=== PATIENT | female | born 1980 | race Caucasian/White ===

== ENCOUNTER 2016-06-03 13:21 | Emergency (ER) | payer BC ==
[2016-06-03] MEDS ORDERED: DEXAMETHASONE 10 MG/ML VIAL PO STA (14:22)
[2016-06-03] MEDS ORDERED: DEXAMETHASONE 10 MG/ML VIAL ONE (14:24)
[2016-06-03] MEDS ORDERED: CHERRY SYRUP 10 ML UDC PO ONE (14:24)
== END 2016-06-03 14:48 | disposition home or self-care (01) ==
DX: J06.9 Acute upper respiratory infection, unspecified (principal); B97.89 Other viral agents as the cause of diseases classified elsewhere; Z85.42 Personal history of malignant neoplasm of other parts of uterus
CPT/HCPCS: 99283; A9270

== ENCOUNTER 2018-03-14 13:54 | Emergency (ER) | payer BC ==
[2018-03-14] MEDS ORDERED: HYDROcod/ACETAM 5/325 MG TABLET PO STA (15:33)
--- NOTE | 2018-03-14 15:35 | ED Physician Documentation ---
PD HPI UPPER EXT INJURY - Stated complaint Stated Complaint: HAND INJURY - Chief complaint Chief Complaint: Ext Problem - History obtained from History obtained from: Patient, Friend - History of Present Illness Location: Left (About midnight last night she was walking in [place] and tripped and fell injuring her wrist hand and elbow, also her left knee but that does not hurt at all now. Pain is unrelieved by Motrin. 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 - Past Surgical History Past Surgical History: Yes General: Colonoscopy /PRODUCER: section, Dilation and currettage, Tubal ligation, Hysterectomy - Present Medications Home Medications: Ambulatory Orders Medication Instructions Recorded Confirmed Hydrocodone/Acetaminophen 1 - 2 each PO Q6H PRN #10 tablet 03/14/18 [Hydrocodon-Acetaminophen 5-325] - Allergies Allergies/Adverse Reactions: Allergies Allergy/AdvReac Type Severity Reaction Status Date / Time aspirin Allergy Respiratory Verified 03/14/18 14:14 erythromycin base Allergy Hives Verified 03/14/18 14:14 [Erythromycin Base] latex Allergy Hives Verified 03/14/18 14:14 morphine Allergy Unknown Verified 03/14/18 14:14 Penicillins Allergy Hives Verified 03/14/18 14:14 Yeast Allergy Rash Verified 03/14/18 14:14 - Social History Does the pt smoke?: No Smoking Status: Never smoker Does the pt drink ETOH?: Yes Does the pt have substance abuse?: No - Immunizations Immunizations are current?: Yes - POLST Patient has POLST: No PD ED PE NORMAL - Vitals Vital signs reviewed: Yes - General General: Alert and oriented X 3, No acute distress - Neck Neck: Supple, no meningeal sign, No bony TTP - Extremities Extremities: Other (Left knee is nontender with anterolateral small ecchymosis, no tenderness or limited range motion. She has mild tenderness over the medial epicondyle of the left elbow but full range of motion, a little abrasion over the olecranon, nothing deep. The dorsum of the left wrist is swollen and tender with absent range of motion due to pain, she is a well-healed surgical incision that is linear over the fourth metacarpal dorsally. Normal neurovascular function in all the fingers.) - Neuro Neuro: Alert and oriented X 3, Normal speech Results - Vitals Vitals: Vital Signs - 24 hr 03/14/18 14:11 Temperature 36.9 C Heart Rate 107 H Respiratory 18 Rate Blood Pressure 130/102 H O2 Saturation 100 Oxygen O2 Source Room air - Rads (name of study) L elbow/wrist/hand XRs Radiology: EMP read contemporaneously (Negative for fracture, note the radiologist reads the fourth metacarpal as being an expansile bone lesion but this is the cadaveric bone from her prior surgery.) Departure - Departure Disposition: 01 Home, Self Care Clinical Impression: Sprain of wrist, left Qualifiers: Encounter type: initial encounter Qualified Code(s): S63.502A - Unspecified sprain of left wrist, initial encounter Contusion of elbow, left Qualifiers: Encounter type: initial encounter Qualified Code(s): S50.02XA - Contusion of left elbow, initial encounter Condition: Good Record reviewed to determine appropriate education?: Yes Instructions: ED Splint Care Velcro, ED Sprain Wrist Prescriptions: Hydrocodone/Acetaminophen [Hydrocodon-Acetaminophen 5-325] 1 - 2 each PO Q6H PRN #10 tablet PRN Reason: pain Comments: Recheck with your doctor in a week if not better, return if worse or if new symptoms develop. Your blood pressure was elevated today on check into the emergency department. This does not mean that you have hypertension, it is a common phenomenon to come to the emergency department and have elevated blood pressure. I recommend that you see your primary care physician within the week to have it rechecked when you are feeling better. Do not drink or drive while taking narcotic pain medication. Note that many narcotic pain relievers also contain Tylenol/acetaminophen. Please ensure that your total dose of acetaminophen from all sources does not exceed 3 g (3000 mg) per day. You may get constipated while on this medication. Take a stool softener such as Colace twice a day while you are on it. Also add an [id number] laxative such as senna or MiraLAX on any day that you do not have a bowel movement. If you received a narcotic pain medication or sedative while in the emergency department, do not drive for the next 24 hours.
--- NOTE | 2018-03-14 16:04 | XRAY Report ---
Reason: elbow inj Procedure Date: 03/14/2018 Accession Number: [id number] / [id number] Procedure: XR - Elbow 3 View LT CPT Code: FULL RESULT: EXAM: LEFT ELBOW RADIOGRAPHY EXAM DATE: 03/14/2018 03:54 PM. CLINICAL HISTORY: Left elbow pain since fall yesterday. COMPARISON: None. TECHNIQUE: 3 views. FINDINGS: Bones: Normal. No fractures or bone lesions. Joints: Normal. No effusion. No subluxation. Soft Tissues: Unremarkable. IMPRESSION: Normal elbow radiography. RADIA
--- NOTE | 2018-03-14 16:08 | XRAY Report ---
Reason: Trauma Procedure Date: 03/14/2018 Accession Number: [id number] / [id number] Procedure: XR - Wrist 4 View LT CPT Code: FULL RESULT: EXAM: LEFT WRIST RADIOGRAPHY EXAM DATE: 03/14/2018 03:54 PM. CLINICAL HISTORY: Pain since fall yesterday. COMPARISON: None. TECHNIQUE: 4 views. FINDINGS: Bones: No acute traumatic or destructive bone abnormality. Expansile sclerotic bone lesion with endosteal scalloping in the shaft of the fourth metacarpal. Joints: Normal. No subluxations. Soft Tissues: Normal. No soft tissue swelling. IMPRESSION: 1. No acute bony abnormality. 2. 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 Consider bone scan to see if this is metabolically active. RADIA
--- NOTE | 2018-03-14 16:11 | XRAY Report ---
Reason: Trauma Procedure Date: 03/14/2018 Accession Number: [id number] / [id number] Procedure: XR - Hand 3 View LT CPT Code: FULL RESULT: EXAM: LEFT HAND RADIOGRAPHY EXAM DATE: 03/14/2018 03:54 PM. CLINICAL HISTORY: Pain and numbness in fingers since fall yesterday. History of cadaver bone graft in fourth metacarpal. COMPARISON: None. TECHNIQUE: 3 views. FINDINGS: Bones: No acute traumatic or destructive bone abnormalities. Sclerotic expansile bone lesion in the fourth metacarpal shaft with endosteal scalloping. Joints: Normal. No subluxations. Soft Tissues: Unremarkable. IMPRESSION: 1. No acute bony abnormalities. 2. Sclerotic expansile bone lesion in the fourth metacarpal shaft. RADIA
[2018-03-14 16:27] VITALS: BP 138/104
== END 2018-03-14 16:28 | disposition home or self-care (01) ==
LOC: ED 13:54
DX: S63.502A Unspecified sprain of left wrist, initial encounter (principal); S50.02XA Contusion of left elbow, initial encounter; S50.312A Abrasion of left elbow, initial encounter; W01.0XXA Fall on same level from slipping, tripping and stumbling without subsequent striking against object, initial encounter; Y93.01 Activity, walking, marching and hiking; R03.0 Elevated blood-pressure reading, without diagnosis of hypertension
CPT/HCPCS: 73080; 73110; 73130; 99283; A9270

== ENCOUNTER 2018-08-28 09:51 | Emergency (ER) | payer BC ==
[2018-08-28 10:26] LABS: BILIRUBIN,URINE NEGATIVE (NEGATIVE); KETONES,URINE (UA) TRACE mg/dL (NEGATIVE); OCCULT BLOOD,URINE NEGATIVE (NEGATIVE)
[2018-08-28 10:29] LABS: CLARITY,URINE CLEAR (CLEAR)
--- NOTE | 2018-08-28 10:30 | ED Physician Documentation ---
PD HPI FEMALE - Stated complaint Stated Complaint: FEMALE - Chief complaint Chief Complaint: General - History obtained from History obtained from: Patient - History of Present Illness Timing - onset: How many days ago (2-3) Timing - duration: Days (She has had 2-3 days of frequency and discomfort with urination. She thought she may have a bladder infection. She today now has right flank pain and felt feverish. She is concerned about kidney infection.) Timing - details: Gradual onset, Still present (worse today) Associated symptoms: Fever (mild subjective last night), Abdominal pain (some to right lower abd), Back pain (right flank), Dysuria, Urinary frequency. No: Chest/shoulder pain, Vaginal discharge, Genital sore/lesion Similar symptoms before: Diagnosis (prior UTIs but not with flank pain in the past. Has had kidney stone in the past, passed without intervention.) Review of Systems Constitutional: reports: Fever (last night), Myalgias Nose: denies: Rhinorrhea / runny nose, Congestion Throat: denies: Sore throat Respiratory: denies: Dyspnea, Cough GI: reports: Abdominal Pain, Nausea. denies: Vomiting, Diarrhea : reports: Dysuria, Frequency. denies: Discharge Skin: denies: Rash, Lesions Musculoskeletal: reports: Back pain (right flank since last night). 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 Other Past Medical History: Sinus Tachycardia - Past Surgical History Past Surgical History: Yes General: Colonoscopy /TE[employer] T[employer] F[employer] WORKER: section, Dilation and currettage, Tubal ligation, Hysterectomy - Present Medications Home Medications: Ambulatory Orders Medication Instructions Recorded Confirmed Cyclobenzaprine [Flexeril] 10 mg PO DAILY PM 08/28/18 08/28/18 Garlic 1,000 mg PO 08/28/18 Lisinopril 5 mg PO BID 08/28/18 08/28/18 Metoprolol Tartrate 50 mg PO BID 08/28/18 08/28/18 Multivitamin [Multiple Vitamins] 08/28/18 Ondansetron Odt [Zofran] 4 mg TL Q6H PRN #10 tablet 08/28/18 Potassium Chloride 99 meq PO 08/28/18 Sulfamethox/Trimeth 800/160 1 each PO BID #14 tablet 08/28/18 [Bactrim Ds 800/160] Tramadol HCl 50 mg PO Q6H PRN #15 tablet 08/28/18 - Allergies Allergies/Adverse Reactions: Allergies Allergy/AdvReac Type Severity Reaction Status Date / Time aspirin Allergy Respiratory Verified 08/28/18 10:05 erythromycin base Allergy Hives Verified 08/28/18 10:05 [Erythromycin Base] latex Allergy Hives Verified 08/28/18 10:05 morphine Allergy Unknown Verified 08/28/18 10:05 Penicillins Allergy Hives Verified 08/28/18 10:05 Yeast Allergy Rash Verified 08/28/18 10:05 - Social History Does the pt smoke?: No Smoking Status: Never smoker Does the pt drink ETOH?: Yes Does the pt have substance abuse?: No - Immunizations Immunizations are current?: Yes - POLST Patient has POLST: No PD ED PE NORMAL - Vitals Vital signs reviewed: Yes - General General: Alert and oriented X 3, Well developed/nourished - HEENT HEENT: Moist mucous membranes, Pharynx benign - Neck Neck: Supple, no meningeal sign, No adenopathy - Cardiac Cardiac: RRR, No murmur - Respiratory Respiratory: Clear bilaterally - Abdomen Abdomen: Soft, Non distended, No organomegaly - Female Female : Deferred - Rectal Rectal: Deferred - Back Back: Other (some right CVA tenderness; tender right lower abd without guarding nor percussion tenderness. ) - Derm Derm: Normal color, Warm and dry, No rash - Extremities Extremities: No deformity, Normal ROM s pain, No edema, No calf tenderness / cord - Neuro Neuro: Alert and oriented X 3, No motor deficit, Normal speech Results - Vitals Vitals: Vital Signs - 24 hr 08/28/18 08/28/18 10:03 13:48 Temperature 36.5 C Heart Rate 101 H 70 Respiratory 16 16 Rate Blood Pressure 125/85 H 120/87 H O2 Saturation 97 100 Oxygen O2 Source Room air - Labs Labs: Laboratory Tests 08/28/18 08/28/18 08/28/18 10:15 11:27 11:27 WBC 8.9 RBC 3.94 L Hgb 12.2 Hct 36.3 L MCV 92.1 MCH 30.9 MCHC 33.6 RDW 13.8 Plt Count 203 MPV 8.3 Neut # (Auto) 5.6 Lymph # (Auto) 2.5 [place] # (Auto) 0.6 Eos # (Auto) 0.1 Baso # (Auto) 0.1 Absolute Nucleated RBC 0.00 Nucleated RBC % 0.0 Sodium 136 Potassium 3.3 L Chloride 100 L Carbon Dioxide 27 Anion Gap 9.0 BUN 7 Creatinine 0.7 Estimated GFR (MDRD) 93 Glucose 100 Calcium 9.4 Magnesium 1.9 Total Bilirubin 0.7 AST 33 ALT 49 Alkaline Phosphatase 43 B-Natriuretic Peptide Total Protein 6.9 Albumin 3.8 Globulin 3.1 Albumin/Globulin Ratio 1.2 Lipase 36 Urine Color DK. ORANGE Urine Clarity CLEAR Urine pH 5.0 Ur Specific [place] <=1.005 Urine Protein Urine Glucose (UA) Urine Ketones TRACE Urine Occult Blood NEGATIVE Urine Nitrite Urine Bilirubin NEGATIVE Urine Urobilinogen Ur Leukocyte Esterase Urine RBC 0-5 Urine WBC 0-3 Ur Squamous Epith Cells FEW Squamous Urine Bacteria Few Ur Microscopic Review INDICATED Urine Culture Comments NOT INDICATED 08/28/18 11:27 WBC RBC Hgb Hct MCV MCH MCHC RDW Plt Count MPV Neut # (Auto) Lymph # (Auto) [place] # (Auto) Eos # (Auto) Baso # (Auto) Absolute Nucleated RBC Nucleated RBC % Sodium Potassium Chloride Carbon Dioxide Anion Gap BUN Creatinine Estimated GFR (MDRD) Glucose Calcium Magnesium Total Bilirubin AST ALT Alkaline Phosphatase B-Natriuretic Peptide 12 Total Protein Albumin Globulin Albumin/Globulin Ratio Lipase Urine Color Urine Clarity Urine pH Ur Specific [place] Urine Protein Urine Glucose (UA) Urine Ketones Urine Occult Blood Urine Nitrite Urine Bilirubin Urine Urobilinogen Ur Leukocyte Esterase Urine RBC Urine WBC Ur Squamous Epith Cells Urine Bacteria Ur Microscopic Review Urine Culture Comments - Rads (name of study) abd/pelvic CT Radiology: Prelim report reviewed (Appendix is visualized and normal. No signs of kidney stones nor hydronephrosis. There is an incidental cyst in the upper pole of the kidney. No process to explain the current pain.), See rad report PD MEDICAL DECISION MAKING - ED course Complexity details: reviewed results (CT scan did not show an acute obvious cause. We will follow back on diagnosis of urinary tract infection. She is to watch for other symptoms to develop such as increasing pain, fevers, rash or other concerns.), re-evaluated patient, considered differential (She was having some dysuria symptoms suggestive of UTI and now with some right flank pain. There is no rash noted. Her urine test shows some signs of infection but not very convincingly to the degree of kidney infection. There is some tenderness to the right lower abdomen and therefore would be concerned about kidney stone, abscess, appendicitis. We will get labs and CT scan to evaluate for other causes.), d/w patient Departure - Departure Disposition: 01 Home, Self Care Clinical Impression: Right sided abdominal pain UTI (urinary tract infection) Qualifiers: Urinary tract infection type: acute cystitis Hematuria presence: without hematuria Qualified Code(s): N30.00 - Acute cystitis without hematuria Condition: Stable Record reviewed to determine appropriate education?: Yes Instructions: ED Abdominal Pain Unkn Cause, ED UTI Cystitis Female Prescriptions: Ondansetron Odt [Zofran] 4 mg TL Q6H PRN #10 tablet PRN Reason: Nausea / Vomiting Sulfamethox/Trimeth 800/160 [Bactrim Ds 800/160] 1 each PO BID #14 tablet Tramadol HCl 50 mg PO Q6H PRN #15 tablet PRN Reason: Pain Comments: Stay well-hydrated. Your urine does show signs of infection we will treated with Bactrim twice daily for a week. This may be given you the pain to the right side as well as the nausea and vomiting. Hopefully those will improve and we can treat it with ondansetron for nausea and Tylenol or ibuprofen for pains. Add tramadol if needed for pain. Recheck if not improving over the next couple of days. Your blood tests and CT scan did not show an alternate cause of the pain. Discharge Date/Time: 08/28/18 13:54
[2018-08-28 10:37] LABS: BACTERIA,URINE Few /HPF (None Seen); RBC,URINE 0-5 /HPF (0-5); SQUAMOUS EPITHELIAL CELL,UR FEW Squamous (<= Few)
[2018-08-28] MEDS ORDERED: ONDANSETRON 4 MG/2 ML VIAL IVP STA (11:13)
[2018-08-28] MEDS ORDERED: SODIUM CHLORIDE 0.9% 1,000 ML IV ONE (11:13)
[2018-08-28 11:37] LABS: BASOPHILS # (AUTO) 0.1 10^3/uL (0.0-0.1); BASOPHILS % (AUTO) 1.3 %; EOSINOPHILS # (AUTO) 0.1 10^3/uL (0.0-0.7); HGB - HEMOGLOBIN 12.2 g/dL (12.0-16.0); LYMPHOCYTES # (AUTO) 2.5 10^3/uL (1.5-3.5); LYMPHOCYTES % (AUTO) 28.2 %; MEAN CORPUSCULAR HEMOGLOBIN 30.9 pg (27.0-31.0); MEAN CORPUSCULAR HGB CONC 33.6 g/dL (32.0-36.0); MEAN CORPUSCULAR VOLUME 92.1 fL (81.0-99.0); MEAN PLATELET VOLUME 8.3 fL (7.9-10.8); MONOCYTES # (AUTO) 0.6 10^3/uL (0.0-1.0); MONOCYTES % (AUTO) 6.8 %; NEUTROPHILS # (AUTO) 5.6 10^3/uL (1.5-6.6); NEUTROPHILS % (AUTO) 62.7 %; PLT - PLATELET COUNT 203 10^3/uL (130-450); RED BLOOD COUNT 3.94 10^6/uL (4.20-5.40); RED CELL DISTRIBUTION WIDTH 13.8 % (12.0-15.0); WHITE BLOOD COUNT 8.9 x10^3/uL (4.8-10.8)
[2018-08-28 11:49] LABS: ALBUMIN 3.8 g/dL (3.2-5.5); ALBUMIN/GLOBULIN RATIO 1.2 (1.0-2.2); BILIRUBIN,TOTAL 0.7 mg/dL (0.2-1.0); CALCIUM 9.4 mg/dL (8.5-10.3); CREATININE 0.7 mg/dL (0.4-1.0); MAGNESIUM 1.9 mg/dL (1.7-2.8); TOTAL PROTEIN 6.9 g/dL (6.7-8.2)
[2018-08-28] MEDS ORDERED: IOVERSOL 320 100 ML VIAL IVP ONE ×2 (12:02→12:19)
--- NOTE | 2018-08-28 12:51 | CT Report ---
Reason: right abd pain for a week Procedure Date: 08/28/2018 Accession Number: [id number] / [id number] Procedure: CT - Abdomen/Pelvis W CPT Code: FULL RESULT: EXAM: CT ABDOMEN AND PELVIS EXAM DATE: 08/28/2018 12:23 PM. CLINICAL HISTORY: Right abdominal pain for a week. COMPARISONS: ABDOMEN/PELVIS W/ 10/31/2014 12:13 PM. TECHNIQUE: Routine helical CT imaging was performed through the abdomen and pelvis. IV contrast: ISOVUE 300 100 mL. Enteric contrast: No. Reconstructions: Coronal and sagittal. In accordance with CT protocol optimization, one or more of the following dose reduction techniques were utilized for this exam: automated exposure control, adjustment of mA and/or KV based on patient size, or use of iterative reconstructive technique. FINDINGS: Lung Bases: Unremarkable. Liver: Normal. No masses. Gallbladder/Bile Ducts: Surgically absent. No significant biliary ductal dilatation. Spleen: Normal. Pancreas: Normal. Adrenal Glands: Normal. Kidneys: 2.5 cm simple-appearing cyst upper pole left kidney.. No masses, stones or hydronephrosis. No ureteral lithiasis. Peritoneal Cavity/Bowel: Normal. No free fluid, free air or adenopathy. No masses or acute inflammatory process. The appendix is well visualized and normal. Pelvic Organs: Normal. The bladder and visualized pelvic organs are within normal limits. Vasculature: No aneurysms or other significant abnormality. Bones: No significant abnormality. Other: None. IMPRESSION: 1. No specific abnormalities demonstrated to explain symptoms. 2. Incidental simple-appearing 2.5 cm cyst left upper pole kidney. RADIA
[2018-08-28 13:49] VITALS: BP 120/87
== END 2018-08-28 13:54 | disposition home or self-care (01) ==
LOC: ED 09:51
DX: N30.00 Acute cystitis without hematuria (principal); I10 Essential (primary) hypertension; Z85.42 Personal history of malignant neoplasm of other parts of uterus; Z90.710 Acquired absence of both cervix and uterus
CPT/HCPCS: 36415; 74177; 80053; 81001; 83690; 83735; 83880; 85025; 96361; 96374; 99283; Q9967; 81003; 87086

== ENCOUNTER 2019-10-31 13:31 | Emergency (ER) | payer BC ==
[2019-10-31 13:38] VITALS: BP 138/96
--- NOTE | 2019-10-31 13:41 | ED Physician Documentation ---
PD HPI LOWER EXT INJURY - Stated complaint Stated Complaint: LT HIP PX - Chief complaint Chief Complaint: Trauma Ext - History obtained from History obtained from: Patient - History of Present Illness PD HPI LOW EXT INJURY LOCATION: Left, Hip Type of injury: Fall (slipped and fell to left hip, with pain laterally.) Timing - onset: Yesterday Timing - duration: Days (1) Timing - details: Abrupt onset, Still present Worsened by: Moving (stepping and lifting up left) Associated symptoms: No: Weakness, Numbness Similar symptoms before: Has not had sx before (has had some pains to side of hip in the past, also low back pains and had PT for low back recently. 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: section, Dilation and currettage, Tubal ligation, Hysterectomy - Present Medications Home Medications: Ambulatory Orders Medication Instructions Recorded Confirmed Cyclobenzaprine [Flexeril] 10 mg PO DAILY PM 08/28/18 08/28/18 Garlic 1,000 mg PO 08/28/18 Metoprolol Tartrate 50 mg PO BID 08/28/18 08/28/18 Multivitamin [Multiple Vitamins] 08/28/18 Ondansetron Odt [Zofran] 4 mg TL Q6H PRN #10 tablet 08/28/18 Potassium Chloride 99 meq PO 08/28/18 Sulfamethox/Trimeth 800/160 1 each PO BID #14 tablet 08/28/18 [Bactrim Ds 800/160] Tramadol HCl 50 mg PO Q6H PRN #15 tablet 08/28/18 lisinopriL [Lisinopril] 5 mg PO BID 08/28/18 08/28/18 Hydrocodone/Acetaminophen [[place] 1 each PO Q6H PRN #20 tablet 10/31/19 5-325 Tablet] dexAMETHasone [Decadron] 4 mg PO DAILY #5 tablet 10/31/19 - Allergies Allergies/Adverse Reactions: Allergies Allergy/AdvReac Type Severity Reaction Status Date / Time aspirin Allergy Respiratory Verified 10/31/19 13:35 erythromycin base Allergy Hives Verified 10/31/19 13:35 [Erythromycin Base] latex Allergy Hives Verified 10/31/19 13:35 morphine Allergy Unknown Verified 10/31/19 13:35 Penicillins Allergy Hives Verified 10/31/19 13:35 Yeast Allergy Rash Verified 10/31/19 13:35 - Social History Does the pt smoke?: No Smoking Status: Never smoker Does the pt drink ETOH?: Yes Does the pt have substance abuse?: No - Immunizations Immunizations are current?: Yes - POLST Patient has POLST: No PD ED PE NORMAL - Vitals Vital signs reviewed: Yes - General General: Alert and oriented X 3, No acute distress, Well developed/nourished - Abdomen Abdomen: Soft, Non tender - Back Back: No CVA TTP, No spinal TTP - Derm Derm: Normal color, Warm and dry - Extremities Extremities: Other (left SI area with some tenderness. Mostly tender at lateral trochanter focally. No redness nor rash/bruising. ) - Neuro Neuro: Alert and oriented X 3, No motor deficit, No sensory deficit Results - Vitals Vitals: Vital Signs - 24 hr 10/31/19 13:35 Temperature 36.5 C Heart Rate 85 Respiratory 14 Rate Blood Pressure 138/96 H O2 Saturation 97 Oxygen O2 Source Room air - Rads (name of study) left hip Radiology: Prelim report reviewed (normal), See rad report PD MEDICAL DECISION MAKING - ED course Complexity details: re-evaluated patient (bursal injection (tendon area as well) with Kenalog and ropivacaine at point of trancheric tenderness. No complications. ), considered differential, d/w patient Departure - Departure Disposition: 01 Home, Self Care Clinical Impression: Trochanteric bursitis of left hip Contusion, hip Qualifiers: Encounter type: initial encounter Laterality: left Qualified Code(s): S70.02XA - Contusion of left hip, initial encounter Accidental fall Qualifiers: Encounter type: initial encounter Qualified Code(s): W19.XXXA - Unspecified fall, initial encounter Condition: Stable Record reviewed to determine appropriate education?: Yes Instructions: Trochanteric Bursitis, Iliotibial Band Stretch Follow-Up: Linda Easley ARNP [Primary Care Provider] - Prescriptions: dexAMETHasone [Decadron] 4 mg PO DAILY #5 tablet Hydrocodone/Acetaminophen [[place] 5-325 Tablet] 1 each PO Q6H PRN #20 tablet PRN Reason: Pain Comments: You can use the Decadron steroid anti-inflammatory daily for 5 days. We did a local injection at the tendon/bursa on the hip as well. Gentle range of motion and some stretching exercises for the iliotibial band and also the SI joint. You can see chiropractic for this. Also contact your primary care regarding possible physical therapy as well. Add Tylenol 4 times a day for the pain or hydrocodone if needed for worse pain. Follow-up with your primary care if not improving well over the next several days to week. Discharge Date/Time: 10/31/19 15:33
[2019-10-31] MEDS ORDERED: BUPIVACAINE 0.5%-EPI 1:200000 PF 10 ML VIAL SUBQ STA (14:04)
[2019-10-31] MEDS ORDERED: HYDROcod/ACETAM 5/325 MG TABLET PO STA (14:04)
[2019-10-31] MEDS ORDERED: TRIAMCINOLONE 40 MG/ML VIAL IM STA (14:04)
[2019-10-31] MEDS ORDERED: KETOROLAC 30 MG/ML VIAL IM STA (14:05)
--- NOTE | 2019-10-31 14:48 | XRAY Report ---
Reason: fall with injury lateral left hip Procedure Date: 10/31/2019 Accession Number: [id number] / [id number] Procedure: XR - Hip w/Pelvis 2-3V LT CPT Code: Final Report FULL RESULT: PROCEDURE: Hip w/Pelvis 2-3V LT INDICATIONS: fall with injury lateral left hip TECHNIQUE: AP pelvis with lateral view(s) of the bilateral hip(s). COMPARISON: None. FINDINGS: Bones: No fractures or dislocations. Pelvic ring appears intact. No suspicious bony lesions. Soft tissues: The visualized bowel gas pattern is normal. No suspicious soft tissue calcifications. IMPRESSION: No fracture. No acute osseous lesion. If there is continued clinical concern for pathology, then repeat plain film radiographs (7-10 days) or advanced imaging (CT, MR, bone scan) should be considered for further evaluation. Reviewed by: Ana Crespo MD, PhD on 10/31/2019 2:46 PM PDT Approved by: Ana Crespo MD, PhD on 10/31/2019 2:46 PM PDT Station ID: [id number]
[2019-10-31] MEDS ORDERED: ROPIVACAINE 0.5% PF 20 ML AMPULE SUBQ STA (15:00)
== END 2019-10-31 15:33 | disposition home or self-care (01) ==
LOC: ED 13:31
DX: M70.62 Trochanteric bursitis, left hip (principal); S70.02XA Contusion of left hip, initial encounter; W10.9XXA Fall (on) (from) unspecified stairs and steps, initial encounter; I10 Essential (primary) hypertension
CPT/HCPCS: 20610

== ENCOUNTER 2020-06-21 20:30 | Outpatient (CLI) | payer BC | END 2020-06-21 20:31 | disposition home or self-care (01) | LOC: COV 20:30 | PROVIDERS: ATTEND Family Medicine | DX: R05 Cough (principal); R06.02 Shortness of breath; M79.10 Myalgia, unspecified site; R53.83 Other fatigue; R68.83 Chills (without fever); R07.0 Pain in throat; R19.7 Diarrhea, unspecified; R43.9 Unspecified disturbances of smell and taste; J34.89 Other specified disorders of nose and nasal sinuses; R11.0 Nausea; Z20.822 Contact with and (suspected) exposure to COVID-19 ==

== ENCOUNTER 2020-08-16 16:41 | Outpatient (CLI) | payer BC | END 2020-08-16 16:42 | disposition home or self-care (01) | LOC: COV 16:41 | PROVIDERS: ATTEND Family Medicine | DX: R50.9 Fever, unspecified (principal); R05 Cough; R06.02 Shortness of breath; M79.10 Myalgia, unspecified site; R53.83 Other fatigue; R07.0 Pain in throat; R19.7 Diarrhea, unspecified; R43.8 Other disturbances of smell and taste; R09.81 Nasal congestion; J34.89 Other specified disorders of nose and nasal sinuses; R11.2 Nausea with vomiting, unspecified; Z20.822 Contact with and (suspected) exposure to COVID-19 ==

== ENCOUNTER 2021-01-08 17:17 | Outpatient (CLI) | payer BC | END 2021-01-08 17:18 | disposition home or self-care (01) | LOC: COV 17:17 | PROVIDERS: ATTEND Family Medicine | DX: R50.9 Fever, unspecified (principal); R05 Cough; R06.02 Shortness of breath; M79.10 Myalgia, unspecified site; R53.83 Other fatigue; R07.0 Pain in throat; R19.7 Diarrhea, unspecified; R43.8 Other disturbances of smell and taste; R09.81 Nasal congestion; J34.89 Other specified disorders of nose and nasal sinuses; Z20.822 Contact with and (suspected) exposure to COVID-19 ==

== ENCOUNTER 2021-02-15 13:55 | Outpatient (CLI) | payer BC | END 2021-02-15 13:56 | disposition home or self-care (01) | LOC: COV 13:55 | PROVIDERS: ATTEND Family Medicine | DX: R05 Cough (principal); R06.02 Shortness of breath; M79.10 Myalgia, unspecified site; R53.83 Other fatigue; R68.83 Chills (without fever); R07.0 Pain in throat; R19.7 Diarrhea, unspecified; R43.8 Other disturbances of smell and taste; R09.81 Nasal congestion; J34.89 Other specified disorders of nose and nasal sinuses; R11.2 Nausea with vomiting, unspecified; Z20.822 Contact with and (suspected) exposure to COVID-19 ==

== ENCOUNTER 2021-06-02 10:40 | Emergency (ER) | payer BC ==
[2021-06-02 10:53] VITALS: BP 144/89
--- NOTE | 2021-06-02 11:41 | ED Physician Documentation ---
PD HPI HEENT - Stated complaint Stated Complaint: COUGH/THROAT PX - Chief complaint Chief Complaint: Heent - History obtained from History obtained from: Patient (She has been sick for about 5 days with cough, runny nose, sore throat, body aches, fever a few days ago which have defervesced. Her grandchildren were sick a couple of weeks ago but are now better. She is fully immunized against COVID with Moderna, second shot in October.) Review of Systems Constitutional: reports: Fever, Chills, Myalgias, Fatigue Nose: reports: Rhinorrhea / runny nose, Congestion Respiratory: reports: Cough. 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 ) - Past Surgical History Past Surgical History: Yes General: Colonoscopy /STOCK PULLER: section, Dilation and currettage, Tubal ligation, Hysterectomy - Present Medications Home Medications: Ambulatory Orders Medication Instructions Recorded Confirmed Cyclobenzaprine [Flexeril] 10 mg PO DAILY PM 08/28/18 08/28/18 Garlic 1,000 mg PO 08/28/18 Metoprolol Tartrate 50 mg PO BID 08/28/18 08/28/18 Multivitamin [Multiple Vitamins] 08/28/18 Ondansetron Odt [Zofran] 4 mg TL Q6H PRN #10 tablet 08/28/18 Potassium Chloride 99 meq PO 08/28/18 Sulfamethox/Trimeth 800/160 1 each PO BID #14 tablet 08/28/18 [Bactrim Ds 800/160] Tramadol HCl 50 mg PO Q6H PRN #15 tablet 08/28/18 lisinopriL [Lisinopril] 5 mg PO BID 08/28/18 08/28/18 Hydrocodone/Acetaminophen [Myton 1 each PO Q6H PRN #20 tablet 10/31/19 5-325 Tablet] dexAMETHasone [Decadron] 4 mg PO DAILY #5 tablet 10/31/19 HYDROcod/ACETAM 5/325 [Myton 5/325] 1 - 2 tab PO Q6H PRN #15 tablet 06/02/21 - Allergies Allergies/Adverse Reactions: Allergies Allergy/AdvReac Type Severity Reaction Status Date / Time aspirin Allergy Respiratory Verified 06/02/21 10:54 erythromycin base Allergy Hives Verified 06/02/21 10:54 [Erythromycin Base] latex Allergy Hives Verified 06/02/21 10:54 morphine Allergy Unknown Verified 06/02/21 10:54 Penicillins Allergy Hives Verified 06/02/21 10:54 Yeast Allergy Rash Verified 06/02/21 10:54 - Social History Does the pt smoke?: No Smoking Status: Never smoker Does the pt drink ETOH?: Yes Does the pt have substance abuse?: No - Immunizations Immunizations are current?: Yes - POLST Patient has POLST: No PD ED PE NORMAL - Vitals Vital signs reviewed: Yes - General General: Alert and oriented X 3, No acute distress - Neck Neck: Supple, no meningeal sign, No bony TTP - Cardiac Cardiac: RRR, No murmur - Respiratory Respiratory: No respiratory distress, Clear bilaterally - Abdomen Abdomen: Non tender - Derm Derm: Normal color, Warm and dry, No rash - Extremities Extremities: No edema, No calf tenderness / cord - Neuro Neuro: Alert and oriented X 3, Normal speech Results - Vitals Vitals: Vital Signs - 24 hr 06/02/21 10:49 Temperature 36.4 C L Heart Rate 92 Respiratory 17 Rate Blood Pressure 144/89 H O2 Saturation 97 Oxygen O2 Source Room air Departure - Departure Disposition: Home, Self Care Clinical Impression: Viral URI Condition: Good Record reviewed to determine appropriate education?: Yes Instructions: ED Viral Syndrome Prescriptions: HYDROcod/ACETAM 5/325 [Myton 5/325] 1 - 2 tab PO Q6H PRN #15 tablet PRN Reason: Pain Comments: Prescription sent electronically to [facility] in [place]. You have a Covid test pending. You need to self quarantine until the result is done and negative. Do not leave your house. Do not get near anybody. The results should be done in 48 to 72 hours. We will call with a positive result, the fastest way to get a negative result for confirmation though is to go to the hospital website at [email or web address], click on the [email or web address] tab and sign up for the patient portal. If any friends or family get sick and would like to have a Covid test done, but do not have signs or symptoms that would necessitate being hospitalized, there are multiple local options for Covid testing. [facility] keeps an updated list of testing and vaccination options at: [email or web address]. I am prescribing a short course of narcotic pain medication for you. These are potentially dangerous and addictive medications that should be used carefully. These medications may constipate you. Take an kzcz-[id number] stool softener (docusate) twice daily with plenty of water while taking these medications. If you go 24 hours without a bowel movement, take [id number] miralax, per package instructions. Do not drink or drive while taking these medications. If you received narcotic or sedating medications while in the emergency department, do not drive for 24 hours. Store this medication in a safe, secure place and out of reach of children. It is a violation of federal law to give or sell this medication to another person or to use in a manner other than prescribed. The ED will not refill narcotic prescriptions, including prescriptions lost or stolen. To dispose of unwanted medications: 1. [facility] at [address] [place] [address] in [place] has a medication drop box. They accept prescription medications (in pill form) Thursday through Thursday 9:00 a.m. to 5:00 p.m. 2. The [facility] [employer] accepts prescription medications (in pill form only) for disposal year round. Call for more information. 3. Contact the [facility] for the next [facility] sponsored prescription drug collection event. , [phone], or [phone]; Note that many narcotic pain relievers also contain Tylenol/acetaminophen. Please ensure that your total dose of acetaminophen from all sources does not exceed 3 g (3000 mg) per day.
== END 2021-06-02 12:04 | disposition home or self-care (01) ==
LOC: ED 10:40
DX: U07.1 COVID-19 (principal); J06.9 Acute upper respiratory infection, unspecified
CPT/HCPCS: 99281; 99283